=== PATIENT | female | born 1965 | race Caucasian/White ===

== ENCOUNTER 2020-08-15 13:47 | Emergency (ER) | payer OTHER ==
--- OUTSIDE RECORDS SUMMARY | 2020-08-15 13:53 | XMS REPORT | Continuity of Care Document ---
:1965 Author Organization [facility] t Address [address] [place] [address] Care Team Providers Name Role Phone Only, Test Attending Clinician Unavailable ETADRIANA Attending Clinician Unavailable Deon Lacey MD Attending Clinician Edilia DELGADILLO, T Attending Clinician Unavailable ETMINAN Admitting Clinician Unavailable Deon Lacey MD Admitting Clinician Problems This patient has no known problems. Allergies, Adverse Reactions, Alerts This patient has no known allergies or adverse reactions. Medications This patient has no known medications. Procedures This patient has no known procedures. Encounters Start End Encounter Admission Attending Care Care Encounter Source Date/Time Date/Time Type Type Clinicians Facility Department ID 2020-02-29 2020-02-29 Laboratory Only, [facility] [id number] 08:48:53 09:03:53 Only Test Michelle [id number] [place] [id number] [place] [id number] [facility] 2020-02-17 2020-02-17 Outpatient C DAVID BRYAN RAD [id number] 10:28:00 23:59:00 [facility] [place] 2020-01-18 2020-01-18 [facility] [id number] 06:32:00 08:30:00 Encounter Valentin lima [id number] [place] [id number] Surgical [phone] [place] 071 2020-01-18 2020-01-18 Letter TELMA Yeboah [id number] 00:00:00 00:00:00 (Out) Becca SPRINGER [id number] [facility] [id number] [id number] 2020-01-17 2020-01-17 Laboratory Only, [facility] [id number] 13:28:07 13:43:07 Only Test [place] [id number] [place] [id number] [place] [id number] [id number] Results This patient has no known results.
--- NOTE | 2020-08-15 15:23 | RAD REPORT ---
EXAM DESCRIPTION: RAD - Chest Pa And Lat (2 Views) - 08/15/2020 2:44 pm CLINICAL HISTORY: COUGH COMPARISON: None TECHNIQUE: Frontal and lateral views of the chest were obtained. FINDINGS: The lungs are normal volume. There is a small 7 mm nodular focus left suprahilar region th at could be a summation artifact but does warrant a six-month follow-up examination. No peripheral co nsolidation. Hilar regions are within range of normal. Diaphragm is flattened. Trachea is midline. H eart size is normal and central vasculature is within normal limits. No pleural effusion or pneumoth orax seen. Disc and bony degenerative changes are present. Approximately 30% wedge compression seen in the lower thoracic spine with advanced degenerative change in the partially imaged upper lumbar di sc levels. No aortic abnormality. IMPRESSION: No acute cardiopulmonary process. Small left suprahilar nodular density. This is potentially summation artifact but does warrant re-valente luation in 6 months. If the patient has any outside chest examinations, those could be submitted for comparison as an alternative to the six-month follow-up. Wedge compression at the lower thoracic level and advanced upper lumbar degenerative change only part ially imaged.
--- NOTE | 2020-08-15 15:44 | EDPHYS ---
Physician Documentation [facility] Name: Rajni Egan Age: 55 yrs Sex: Female : 1965 Arrival Date: 08/15/2020 Time: 13:54 Bed 6 Private MD: ED Physician Nick Ryan HPI: 08/15 15:35 This 55 yrs old Female presents to ER via Ambulatory with complaints of Cough.[place] 15:35 The patient or guardian reports cough. Onset: The symptoms/episode began/occurred 2 [place] week(s) ago. Severity of symptoms: At their worst the symptoms were mild, in the emergency department the symptoms are unchanged. Modifying factors: The symptoms are alleviated by nothing, the symptoms are aggravated by cold weather. Associated signs and symptoms: The patient has no apparent associated signs or symptoms. The patient has not experienced similar symptoms in the past. 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 - Social history:: Smoking status: Patient reports the use of cigarette tobacco products, smokes one pack cigarettes per day. ROS: 15:36 Constitutional: Negative for fever, chills, and weight loss, Eyes: Negative for injury, [place] pain, redness, and discharge, ENT: Negative for injury, pain, and discharge, Neck: Negative for injury, pain, and swelling, Cardiovascular: Negative for chest pain, palpitations, and edema, Abdomen/GI: Negative for abdominal pain, nausea, vomiting, diarrhea, and constipation, Back: Negative for injury and pain, : Negative for injury, bleeding, discharge, and swelling, MS/Extremity: Negative for injury and deformity, Skin: Negative for injury, rash, and discoloration, Neuro: Negative for headache, weakness, numbness, tingling, and seizure, Psych: Negative for depression, anxiety, suicide ideation, homicidal ideation, and hallucinations, Allergy/Immunology: Negative for hives, rash, and allergies, Endocrine: Negative for neck swelling, polydipsia, polyuria, polyphagia, and marked weight changes, Hematologic/Lymphatic: Negative for swollen nodes, abnormal bleeding, and unusual bruising. 15:36 Respiratory: Positive for cough, with rust-colored sputum. Exam: 15:36 Constitutional: This is a well developed, well nourished patient who is awake, alert, [place] and in no acute distress. Head/Face: Normocephalic, atraumatic. Eyes: Pupils equal round and reactive to light, extra-ocular motions intact. Lids and lashes normal. Conjunctiva and sclera are non-icteric and not injected. Cornea within normal limits. Periorbital areas with no swelling, redness, or edema. ENT: Nares patent. No nasal discharge, no septal abnormalities noted. Tympanic membranes are normal and external auditory canals are clear. Oropharynx with no redness, swelling, or masses, exudates, or evidence of obstruction, uvula midline. Mucous membranes moist. Neck: Trachea midline, no thyromegaly or masses palpated, and no cervical lymphadenopathy. Supple, full range of motion without nuchal rigidity, or vertebral point tenderness. No Meningismus. Chest/axilla: Normal chest wall appearance and motion. Nontender with no deformity. No lesions are appreciated. Cardiovascular: Regular rate and rhythm with a normal S1 and S2. No gallops, murmurs, or rubs. Normal PMI, no JVD. No pulse deficits. Abdomen/GI: Soft, non-tender, with normal bowel sounds. No distension or tympany. No guarding or rebound. No evidence of tenderness throughout. Back: No spinal tenderness. No costovertebral tenderness. Full range of motion. Pelvic Exam: Normal external genitalia. Speculum exam with closed cervical os, no discharge or bleeding noted. Bimanual exam with normal adnexa, no adnexal or cervical motion tenderness. Normal uterus. Female : Normal external genitalia. Skin: Warm, dry with normal turgor. Normal color with no rashes, no lesions, and no evidence of cellulitis. MS/ Extremity: Pulses equal, no cyanosis. Neurovascular intact. Full, normal range of motion. Neuro: Awake and alert, GCS 15, oriented to person, place, time, and situation. Cranial nerves II-XII grossly intact. Motor strength 5/5 in all extremities. Sensory grossly intact. Cerebellar exam normal. Normal gait. Psych: Awake, alert, with orientation to person, place and time. Behavior, mood, and affect are within normal limits. 15:36 Respiratory: the patient does not display signs of respiratory distress, Respirations: normal, no acute changes, is not noted, labored breathing, is not present, asymmetrical chest movement, is not seen, accessory muscle usage, is absent, Breath sounds: rhonchi, that are mild, are scattered, Respiratory rate: 18 Vital Signs: 13:56 BP 121 / 83; Pulse 88; Resp 18 S; Temp 97.3(TE); Pulse Ox 98% on R/A; Weight 78.47 kg ca1 (R); Height 5 ft. 5 in. (165.10 cm) (R); Pain 0/10; 13:56 Body Mass Index 28.79 (78.47 kg, 165.10 cm) ca1 MDM: 14:49 Patient medically screened. [facility] 15:36 Differential Diagnosis: Bronchitis Influenza Upper Respiratory Infection Sinusitis [place] Pharyngitis Viral Syndrome Pneumonia. Data reviewed: vital signs, nurses notes, lab test result(s), radiologic studies, plain films. Data interpreted: monitoring specialist: rate is 88 beats/min, rhythm is regular, Pulse oximetry: on room air is 98 %. Test interpretation: by ED physician or midlevel provider: plain radiologic studies. 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 08/15 14:12 Order name: Strep ca1 08/15 14:40 Order name: Throat Culture EDME 08/15 14:20 Order name: XRAY Chest Pa And Lat (2 Views) ca1 Administered Medications: 15:44 Drug: Zithromax (azithromycin) 500 mg Route: PO; hb 16:59 Follow up: Response: No adverse reaction sv 15:44 Drug: predniSONE 40 mg Route: PO; hb 16:59 Follow up: Response: No adverse reaction sv 15:44 Drug: Albuterol HFA Inhaler 2 puffs Route: Inhalation; hb Disposition: 08/15/20 15:43 Discharged to Home. Impression: Bronchitis, not specified as acute or chronic, Solitary pulmonary nodule, Tobacco abuse counseling, Tobacco use. - Condition is Stable. - Discharge Instructions: Acute Bronchitis, Adult, Steps to Quit Smoking, Smoking Hazards, Upper Respiratory Infection, Adult, Steps to Quit Smoking, [id number], Cough, Adult, [id number], Pulmonary Nodule, Cough, Adult, Pulmonary Nodule, [id number]. - Prescriptions for Bromfed DM 2- 30-10 mg/5 mL Oral syrup - take 10 milliliter by ORAL route every 6 hours; 160 milliliter. Medrol (Harlan) 4 mg Oral Tablets, Dose Pack - take 1 tablet by ORAL route as directed - follow package instructions; 1 packet. Albuterol Sulfate 90 mcg/actuation - inhale 1-2 puff by INHALATION route every 4-6 hours; 1 Inhaler. Zithromax 500 mg Oral Tablet - take 1 tablet by ORAL route once daily for 4 days; 4 tablet. - Medication Reconciliation Form, Thank You Letter, Antibiotic Education, Prescription Opioid Use form. - Follow up: Private Physician; When: 2 - 3 days; Reason: Recheck today's complaints, Continuance of care, Re-evaluation by your physician. Follow up: Saroj Ross MD; When: 2 - 3 days; Reason: Recheck today's complaints, Re-evaluation by your physician. - Problem is new. - Symptoms have improved. Signatures: Dispatcher [employer] EDSia Vickers RN RN Nick Carrera MD MD cha Baxter, Heather, Genevieve Faust RN, RN RN [facility] Corrections: (The following items were deleted from the chart) 17:00 15:43 08/15/2020 15:43 Discharged to Home. Impression: Bronchitis, not specified as sv acute or chronic; Solitary pulmonary nodule; Tobacco abuse counseling; Tobacco use. Condition is Stable. Forms are Medication Reconciliation Form, Thank You Letter, Antibiotic Education, Prescription Opioid Use. Follow up: Private Physician; When: 2 - 3 days; Reason: Recheck today's complaints, Continuance of care, Re-evaluation by your physician. Follow up: Saroj Ross; When: 2 - 3 days; Reason: Recheck today's complaints, Re-evaluation by your physician. Problem is new. Symptoms have improved. [place]
--- NOTE | 2020-08-15 15:44 | ER ---
Nurse's Notes [facility] Name: Rajni Egan Age: 55 yrs Sex: Female : 1965 Arrival Date: 08/15/2020 Time: 13:54 Bed 6 Private MD: Diagnosis: Bronchitis, not specified as acute or chronic;Solitary pulmonary nodule;Tobacco abuse counseling;Tobacco use Presentation: 08/15 13:56 Chief complaint: Patient states: HX of Bronchitis. Cough x 3 months. Denies fever. Sore ca1 throat x 2 - 3 days. Coronavirus screen: Client denies travel out of the [place] in the last 14 days. cough unrelated to allergies, sore throat, Client presents with at least one sign or symptom that may indicate coronavirus-19. Standard/surgical mask placed on the client. Provider contacted for isolation considerations. Ebola Screen: Patient negative for fever greater than or equal to 101.5 degrees Fahrenheit, and additional compatible Ebola Virus Disease symptoms Patient denies exposure to infectious person. Patient denies travel to an Ebola-affected area in the 21 days before illness onset. No symptoms or risks identified at this time. Initial Sepsis Screen: Does the patient meet any 2 criteria? No. Patient's initial sepsis screen is negative. Does the patient have a suspected source of infection? No. Patient's initial sepsis screen is negative. Risk Assessment: Do you want to hurt yourself or someone else? Patient reports no desire to harm self or others. Onset of symptoms was August 15, 2020. 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 - Social history:: Smoking status: Patient reports the use of cigarette tobacco products, smokes one pack cigarettes per day. Screenin:50 Abuse screen: Denies threats or abuse. Denies injuries from another. Nutritional sv screening: No deficits noted. Tuberculosis screening: No symptoms or risk factors identified. Fall Risk None identified. Assessment: 15:40 General: Appears in no apparent distress. uncomfortable, well developed, Behavior is sv calm, cooperative, appropriate for age. Pain: Denies pain. Neuro: Level of Consciousness is awake, alert, obeys commands, Oriented to person, place, time, situation, Moves all extremities. Full function Gait is steady, Speech is normal. Respiratory: Reports cough that is non-productive, persistent Airway is patent Respiratory effort is even, unlabored, Respiratory pattern is regular, symmetrical. EENT: Reports sore throat. Derm: Skin is pink, warm \T\ dry. 17:00 Reassessment: Patient appears in no apparent distress at this time. Patient and/or sv family updated on plan of care and expected duration. Pain level reassessed. Patient is alert, oriented x 3, equal unlabored respirations, skin warm/dry/pink. Vital Signs: 13:56 BP 121 / 83; Pulse 88; Resp 18 S; Temp 97.3(TE); Pulse Ox 98% on R/A; Weight 78.47 kg ca1 (R); Height 5 ft. 5 in. (165.10 cm) (R); Pain 0/10; 13:56 Body Mass Index 28.79 (78.47 kg, 165.10 cm) ca1 ED Course: 13:54 Patient arrived in ED. ds1 13:58 Triage completed. ca1 13:59 Arm band placed on right wrist. ca1 14:43 XRAY Chest Pa And Lat (2 Views) In Process Unspecified. EDMS 14:49 Nick Ryan MD is Attending Physician. [place] 14:50 Sia Roberts, RN is Primary Nurse. sv 14:50 Patient has correct armband on for positive identification. Bed in low position. Call sv light in reach. Door closed. Head of bed elevated. 15:42 Saroj Ross MD is Referral Physician. [place] 17:00 No provider procedures requiring assistance completed. Patient did not have IV access sv during this emergency room visit. Administered Medications: 15:44 Drug: Zithromax (azithromycin) 500 mg Route: PO; hb 16:59 Follow up: Response: No adverse reaction sv 15:44 Drug: predniSONE 40 mg Route: PO; hb 16:59 Follow up: Response: No adverse reaction sv 15:44 Drug: Albuterol HFA Inhaler 2 puffs Route: Inhalation; hb Outcome: 15:43 Discharge ordered by . [place] 17:00 Discharged to home ambulatory. sv 17:00 Condition: stable 17:00 Discharge instructions given to patient, Instructed on discharge instructions, follow up and referral plans. medication usage, Demonstrated understanding of instructions, follow-up care, medications, Prescriptions given X 4. 17:00 Patient left the ED. sv Signatures: Dispatcher [employer] Sia Chen RN RN sv Anderson, Corey, MD MD cha Sanford, Demi ds1 Lili Valdez RN RN Genevieve Abebe RN RN ca1
[2020-08-15] MEDS ORDERED: predniSONE 20 MG TAB ONE (15:58)
[2020-08-15] MEDS ORDERED: AZITHROMYCIN 250 MG TAB ONE (15:58)
[2020-08-15] MEDS ORDERED: ALBUTEROL INHALER 60 PUFF/8 GM IH ONE (15:59)
[2020-08-15 17:53] VITALS: BP 121/83; TEMP 97.3; O2SAT 98
== END 2020-08-15 17:00 | disposition home or self-care (01) ==
LOC: ER 13:47
DX: J40 Bronchitis, not specified as acute or chronic (principal); R91.1 Solitary pulmonary nodule; F17.210 Nicotine dependence, cigarettes, uncomplicated; I10 Essential (primary) hypertension
CPT/HCPCS: 71046; 87070; 87081; 99284; J7512